=== PATIENT | male | born 1975 | race Caucasian/White ===

== ENCOUNTER 2017-07-19 09:19 | Day surgery (SDC) | payer MEDICAID, OTHER ==
[~2017-07-19 09:19] MED LIST: Buffered Lidocaine 0.9% SYRIN* 5 ML/SYR SYRINGE INTRADERM ONE; Dexamethasone IV* 4 MG/ML 1 ML (4 MG) IV SLOW PU ONE; Famotidine IV* 10 MG/ML 2 ML (20 mg) IV ONE
[2017-07-19] MEDS ORDERED: Famotidine IV* 10 MG/ML 2 ML (20 mg) ONE (09:28)
[2017-07-19] MEDS ORDERED: Dexamethasone IV* 4 MG/ML 1 ML (4 MG) ONE (09:28)
[2017-07-19] MEDS ORDERED: Bupivacaine 0.25% SDV* 30 ML ONE (10:54)
[2017-07-19] MEDS ORDERED: Naloxone* 0.4 MG/ML 1 ML VIAL IV PRN (10:55)
[2017-07-19] MEDS ORDERED: oxyCODONE/Acetamin 5/325 MG* TAB PO PRN (10:55)
[2017-07-19] MEDS ORDERED: Ondansetron INJ* 2 MG/ML VIAL IV PRN (10:55)
[2017-07-19] MEDS ORDERED: Propofol* 10 MG/ML 20 ML BTL IV PUSH ONE (11:01)
[2017-07-19] MEDS ORDERED: Ketorolac INJ* 30 MG/ML 1 ML VIAL ONE (11:01)
[2017-07-19] MEDS ORDERED: Midazolam* 1 MG/ML 2 ML VIAL (2 MG) ONE (11:01)
[2017-07-19] MEDS ORDERED: Ondansetron INJ* 2 MG/ML VIAL ONE (11:01)
[2017-07-19] MEDS ORDERED: fentaNYL* 50 MCG/ML 2 ML VIAL (100 MCG VIAL) ONE (11:01)
[2017-07-19 13:33] VITALS: BP 124/81
--- NOTE | 2017-07-30 23:31 | OP ---
DATE OF OPERATION: 07/19/17 [facility] DATE OF : 75 SURGEON: Geovanny Alicea MD ROBOTIC MAINTENANCE TECHNICIAN: DAVID Potter ANESTHESIOLOGIST: Naren Lopez MD ANESTHESIA: Local MAC. PRE-OP DIAGNOSIS: Left carpal tunnel syndrome. POST-OP DIAGNOSIS: Left carpal tunnel syndrome. OPERATIVE PROCEDURE: Left open carpal tunnel release. INDICATIONS: Jean is 41. He has moderately severe left carpal tunnel syndrome on electrodiagnostics with some denervation in the APB muscle. He, clinically, had carpal tunnel as well. I talked to him about risks and benefits. He wanted to proceed with surgery. ESTIMATED BLOOD LOSS: 2 mL. COMPLICATIONS: None. FINDINGS: As expected. DESCRIPTION OF PROCEDURE: Jean was seen in the preoperative holding area. The correct side, site, and procedure were identified. We came back to the room where the arm was prepped and draped in the usual fashion and a time-out was performed. I begun by making a 2- to 3-cm incision in a standard location for an open carpal tunnel release. Dissection was carried down through the subcutaneous tissue and palmar fascia. The release was begun distally, releasing the transverse carpal ligament just off the radial aspect of the hook of the hamate. This was then brought proximally with fascia and subcutaneous tissue released and retracted volarly and ulnarly with a Grace retractor. Under direct visualization, the remainder of the transverse carpal ligament was then released with the tenotomy scissors including the distal antebrachial fascia. I then checked the release distally and proximally. There was absolutely no compression on the nerve. The wound was irrigated out and the skin was closed with 4-0 nylon suture. Tourniquet had been used throughout the procedure. After the wound was dressed, he was woken up and taken to the recovery room in stable condition. [id number]/[facility] #: [id number] MTDD
== END 2017-07-19 12:50 | disposition home or self-care (01) ==
LOC: OREAST 09:19
PROVIDERS: ATTEND Orthopaedic Surgery Hand Surgery
DX: G56.02 Carpal tunnel syndrome, left upper limb (principal); F17.210 Nicotine dependence, cigarettes, uncomplicated
CPT/HCPCS: J1100; J1885; J2250; J2405; J2704; J3010

== ENCOUNTER 2018-04-01 10:57 | Day surgery (SDC) | payer OTHER ==
[~2018-04-01 10:57] MED LIST changes: +Bupivacaine 0.5% SDV PF* 30ML VIAL ONE; -Dexamethasone IV* 4 MG/ML 1 ML (4 MG) IV SLOW PU ONE; -Famotidine IV* 10 MG/ML 2 ML (20 mg) IV ONE; +Lidocaine 2% PF* 10 ML AMP ONE
[2018-04-01] MEDS ORDERED: ceFAZolin 2 GM PREMIX in ORs 2 GM/50 ML BAG IVPB ONE (11:33)
[2018-04-01] MEDS ORDERED: Buffered Lidocaine 0.9% SYRIN* 5 ML/SYR SYRINGE ONE (11:34)
[2018-04-01] MEDS ORDERED: fentaNYL* 50 MCG/ML 2 ML VIAL (100 MCG VIAL) ONE (13:11)
[2018-04-01] MEDS ORDERED: Midazolam* 1 MG/ML 5 ML VIAL (5 MG) ONE (13:11)
[2018-04-01] MEDS ORDERED: DiMENhydriNATE IV* 50 MG/ML VIAL IV PUSH PRN (13:15)
[2018-04-01] MEDS ORDERED: oxyCODONE/Acetamin 5/325 MG* TAB PO PRN (13:15)
[2018-04-01] MEDS ORDERED: HYDROcodone/ACETAMIN 5-325 MG* 1 TAB PO PRN (13:15)
[2018-04-01] MEDS ORDERED: Naloxone* 0.4 MG/ML 1 ML VIAL IV PRN (13:15)
[2018-04-01] MEDS ORDERED: fentaNYL* 50 MCG/ML 2 ML VIAL (100 MCG VIAL) IV PRN (13:15)
[2018-04-01] MEDS ORDERED: Propofol* 10 MG/ML 20 ML BTL IV PUSH ONE (13:20)
[2018-04-01] MEDS ORDERED: Lidocaine 2% PF * 5 ML VIAL ONE (13:21)
[2018-04-01] MEDS ORDERED: Ketorolac INJ* 30 MG/ML 1 ML VIAL ONE (13:28)
[2018-04-01] MEDS ORDERED: Bupivacaine 0.5% SDV PF* 30ML VIAL ONE (13:30)
[2018-04-01] MEDS ORDERED: Ondansetron INJ* 2 MG/ML VIAL ONE (13:50)
[2018-04-01] MEDS ORDERED: HYDROcodone/ACETAMIN 5-325 MG* 1 TAB ONE (14:53)
[2018-04-01 15:14] VITALS: BP 128/86
--- NOTE | 2018-04-02 09:34 | OP ---
DATE OF OPERATION: 04/01/18 - [facility] DATE OF : 75 ATTENDING SURGEON: Geovanny Stearns MD RESPITE PROVIDER: Kim Fregoso PA-C PRE-OP DIAGNOSIS: Painful hardware, right bimalleolar ankle fracture. POST-OP DIAGNOSIS: Painful hardware, right bimalleolar ankle fracture. OPERATIVE PROCEDURE: Removal of hardware, right ankle. DESCRIPTION OF PROCEDURE: The patient was taken to the operating room where a lateral longitudinal incision was made over the fibula. Each of the screw heads were exposed with the knife and small electrocautery and removed with appropriate X head screwdrivers. We then removed the one-third tubular plate as well. Medially, a 2 cm incision was made at the medial malleolus where we were able to locate the head of the malleolar screw, which was removed with the large fragment screwdriver. Both wounds were then irrigated thoroughly, closed with 2-0 Vicryl, chad for the skin, and a compression dressing plaster splint applied. [id number]/[facility] #: [id number] [facility]
== END 2018-04-01 15:16 | disposition home or self-care (01) ==
LOC: OR 10:57
PROVIDERS: ATTEND Orthopaedic Surgery
DX: T84.84XA Pain due to internal orthopedic prosthetic devices, implants and grafts, initial encounter (principal); Y83.1 Surgical operation with implant of artificial internal device as the cause of abnormal reaction of the patient, or of later complication, without mention of misadventure at the time of the procedure; S82.841D Displaced bimalleolar fracture of right lower leg, subsequent encounter for closed fracture with routine healing; X58.XXXD Exposure to other specified factors, subsequent encounter
CPT/HCPCS: 88300; J0690; J1885; J2001; J2250; J2405; J2704; J3010